=== PATIENT | female | born 1990 ===

== ENCOUNTER 2020-12-11 16:41 | Emergency (ER) | payer OTHER ==
--- NOTE | 2020-12-11 16:52 | EDM.PDOC ---
ED HPI GENERAL MEDICAL PROBLEM - General Chief Complaint: Neuro Symptoms/Deficits Stated Complaint: HEADACHE,syncope Time Seen by Provider: 12/11/20 16:48 Source of Information: Reports: Patient History Limitations: Reports: No Limitations - History of Present Illness INITIAL COMMENTS - FREE TEXT/NARRATIVE: Patient works at [employer]. Severe frontal headache developed just prior to arrival. Patient sat down. Passed out. EMS called. Patient woke up and was being seen by EMS. Passed out again. Emesis x1 while en route to hospital. Patient had second Covid vaccination yesterday. Denies fevers/chills. No URI complaints. No loose stools. No other reported acute changes/focal weakness. Unable to sit up at all due to increased dizziness. - Related Data Allergies Allergy/AdvReac Type Severity Reaction Status Date / Time No Known Allergies Allergy Verified 12/11/20 16:46 Home Meds: Home Meds . [No Known Home Meds] 12/11/20 [History] Past Medical History - Past Health History Medical/Surgical History: Denies Medical/Surgical History ED ROS GENERAL - Review of Systems Review Of Systems: See Below Constitutional: Reports: Fatigue. Denies: Fever, Chills, Night Sweats, Diaphoresis HEENT: Reports: No Symptoms. Denies: Vision Change Respiratory: Reports: No Symptoms Cardiovascular: Reports: No Symptoms GI/Abdominal: Reports: Nausea, Vomiting. Denies: Abdominal Pain, Constipation, Diarrhea : Reports: No Symptoms Musculoskeletal: Reports: No Symptoms Skin: Reports: No Symptoms Neurological: Reports: Dizziness, Headache, Syncope, Difficulty Walking. Denies: Numbness, Paresthesia, Seizure, Tingling, Trouble Speaking, Change in Speech Psychiatric: Reports: No Symptoms Hematologic/Lymphatic: Reports: No Symptoms Immunologic: Reports: No Symptoms ED EXAM, GENERAL - Physical Exam Exam: See Below Exam Limited By: No Limitations General Appearance: Alert, Moderate Distress Eye Exam: Bilateral Eye: EOMI, PERRL, Other (no nystagmus noted) Ears: Normal External Exam, Normal Canal, Hearing Grossly Normal, Normal TMs Nose: Normal Inspection Throat/Mouth: Normal Inspection, Normal Lips, Normal Voice, No Airway Compromise Head: Atraumatic, Normocephalic Neck: Normal Inspection, Supple, Non-Tender, Full Range of Motion Respiratory/Chest: No Respiratory Distress, Lungs Clear, Normal Breath Sounds, No Accessory Muscle Use Cardiovascular: Regular Rate, Rhythm, No Edema, No Murmur GI/Abdominal: Normal Bowel Sounds, Soft, Non-Tender (Female) Exam: Deferred Rectal (Female) Exam: Deferred Back Exam: Normal Inspection Extremities: Normal Inspection, Normal Capillary Refill Neurological: Alert, Oriented, CN II-XII Intact, Normal Cognition, Normal Reflexes, No Motor/Sensory Deficits Psychiatric: Anxious Skin Exam: Warm, Dry, Intact #1 Interpretation EKG Date: 12/11/20 Time: 17:02 Rhythm: NSR Rate (Beats/Min): 63 [place]: Normal P-Wave: Present QRS: Normal ST-T: Normal QT: Normal Course - Orders/Labs/Meds Orders: Active Orders 24 hr Category Date Time Status EKG Documentation Completion [RC] ASDIRECTED Care 12/11/20 16:49 Active Head wo Cont [CT] Stat Exams 12/11/20 16:49 Taken DRUG SCREEN, URINE [URCHEM] Stat Lab 12/11/20 17:35 Received HCG QUALITATIVE,URINE [URCHEM] Stat Lab 12/11/20 17:35 Received UA W/MICROSCOPIC [URIN] Stat Lab 12/11/20 17:35 Received Ketorolac [Toradol] Med 12/11/20 17:44 Ordered 15 mg IVPUSH Q6H PRN Ondansetron [Zofran] Med 12/11/20 17:45 Ordered 4 mg IVPUSH Q6H PRN Sodium Chloride 0.9% [Normal Saline] 1,000 ml Med 12/11/20 17:33 Active IV .BOLUS Sodium Chloride 0.9% [Saline Flush] Med 12/11/20 16:48 Active 10 ml FLUSH ASDIRECTED PRN Saline Lock Insert [OM.PC] Stat Oth 12/11/20 16:48 Ordered Medication Orders Sodium Chloride (Normal Saline) 1,000 mls @ 999 mls/hr IV .BOLUS ONE Stop: 12/11/20 18:33 Last Admin: 12/11/20 17:38 Dose: 999 mls/hr Documented by: ROCK Ketorolac Tromethamine (Ketorolac 15 Mg/Ml Sdv) 15 mg IVPUSH Q6H PRN PRN Reason: Pain Stop: 12/16/20 17:45 Ondansetron HCl (Ondansetron 4 Mg/2 Ml Sdv) 4 mg IVPUSH Q6H PRN PRN Reason: Nausea/Vomiting Sodium Chloride (Sodium Chloride 0.9% 10 Ml Syringe) 10 ml FLUSH ASDIRECTED PRN PRN Reason: Keep Vein Open Last Admin: 12/11/20 16:57 Dose: 10 ml Documented by: ROCK Labs: Laboratory Tests 12/11/20 12/11/20 12/11/20 Range/Units 04:58 04:58 04:58 WBC 4.6 (4.0-10.2) K/uL RBC 4.02 (3.77-5.09) M/uL Hgb 11.6 L (11.7-15.5) g/dL Hct 35.2 (34.0-46.0) % MCV 87.6 (84.0-98.0) fL MCH 28.9 (28.2-33.3) pg MCHC 33.0 (31.7-36.0) g/dL RDW 12.1 (11.2-14.1) % Plt Count 320 (150-350) K/uL Neut % (Auto) 58.8 (45.0-80.0) % Lymph % (Auto) 25.2 (10.0-50.0) % Saunders % (Auto) 14.7 H (2.0-14.0) % Eos % (Auto) 1.1 (0.0-5.0) % Baso % (Auto) 0.2 (0.0-2.0) % Neut # (Auto) 2.68 (1.40-7.00) K/uL Lymph # (Auto) 1.15 (0.50-3.50) K/uL Saunders # (Auto) 0.67 (0.00-1.00) K/uL Eos # (Auto) 0.05 (0.00-0.50) K/uL Baso # (Auto) 0.01 (0.00-0.20) K/uL PT (9.5-12.0) SEC INR Sodium 140 (136-145) mmol/L Potassium 3.8 (3.5-5.1) mmol/L Chloride 108 H (98-107) mmol/L Carbon Dioxide 26.3 (21.0-32.0) mmol/L Anion Gap 9.5 (7-15) meq/L BUN 12 (7-18) mg/dL Creatinine 0.70 (0.51-1.17) mg/dL Est Cr Clr Drug Dosing TNP Estimated GFR (MDRD) > 60 mL/min Glucose 66 L (70-99) mg/dL Lactic Acid 2.1 H (0.4-2.0) mmol/L Calcium 8.5 (8.5-10.1) mg/dL Magnesium 2.0 (1.8-2.4) mg/dL Total Bilirubin 0.7 (0.2-1.0) mg/dL AST 14 L (15-37) U/L ALT 27 (12-78) U/L Alkaline Phosphatase 93 (46-116) IU/L Troponin I High Sens < 4 (<=51) ng/L Total Protein 7.2 (6.4-8.2) g/dL Albumin 3.5 (3.4-5.0) g/dL 12/11/20 Range/Units 04:58 WBC (4.0-10.2) K/uL RBC (3.77-5.09) M/uL Hgb (11.7-15.5) g/dL Hct (34.0-46.0) % MCV (84.0-98.0) fL MCH (28.2-33.3) pg MCHC (31.7-36.0) g/dL RDW (11.2-14.1) % Plt Count (150-350) K/uL Neut % (Auto) (45.0-80.0) % Lymph % (Auto) (10.0-50.0) % Saunders % (Auto) (2.0-14.0) % Eos % (Auto) (0.0-5.0) % Baso % (Auto) (0.0-2.0) % Neut # (Auto) (1.40-7.00) K/uL Lymph # (Auto) (0.50-3.50) K/uL Saunders # (Auto) (0.00-1.00) K/uL Eos # (Auto) (0.00-0.50) K/uL Baso # (Auto) (0.00-0.20) K/uL PT 9.8 (9.5-12.0) SEC INR 1.0 Sodium (136-145) mmol/L Potassium (3.5-5.1) mmol/L Chloride (98-107) mmol/L Carbon Dioxide (21.0-32.0) mmol/L Anion Gap (7-15) meq/L BUN (7-18) mg/dL Creatinine (0.51-1.17) mg/dL Est Cr Clr Drug Dosing Estimated GFR (MDRD) mL/min Glucose (70-99) mg/dL Lactic Acid (0.4-2.0) mmol/L Calcium (8.5-10.1) mg/dL Magnesium (1.8-2.4) mg/dL Total Bilirubin (0.2-1.0) mg/dL AST (15-37) U/L ALT (12-78) U/L Alkaline Phosphatase (46-116) IU/L Troponin I High Sens (<=51) ng/L Total Protein (6.4-8.2) g/dL Albumin (3.4-5.0) g/dL Meds: Medications Generic Name Dose Route Start Last Admin Trade Name Freq PRN Reason Stop Dose Admin Sodium Chloride 1,000 mls @ 999 mls/hr 12/11/20 17:33 12/11/20 17:38 Normal Saline IV 12/11/20 18:33 999 mls/hr .BOLUS ONE Administration Ketorolac Tromethamine 15 mg 12/11/20 17:44 Ketorolac 15 Mg/Ml Sdv IVPUSH 12/16/20 17:45 Q6H PRN Pain Ondansetron HCl 4 mg 12/11/20 17:45 Ondansetron 4 Mg/2 Ml Sdv IVPUSH Q6H PRN Nausea/Vomiting Sodium Chloride 10 ml 12/11/20 16:48 12/11/20 16:57 Sodium Chloride 0.9% 10 Ml Syringe FLUSH 10 ml ASDIRECTED PRN Administration Keep Vein Open Discontinued Medications Generic Name Dose Route Start Last Admin Trade Name Freq PRN Reason Stop Dose Admin Meclizine HCl 25 mg 12/11/20 17:19 12/11/20 17:37 Meclizine 25 Mg Tab PO 12/11/20 17:20 25 mg ONETIME ONE Administration Morphine Sulfate 2 mg 12/11/20 17:45 Morphine 2 Mg/Ml Syringe IVPUSH 12/11/20 17:46 ONETIME ONE Ondansetron HCl 4 mg 12/11/20 16:50 12/11/20 16:57 Ondansetron 4 Mg/2 Ml Sdv IVPUSH 12/11/20 16:51 4 mg ONETIME ONE Administration - Re-Assessments/Exams Free Text/Narrative Re-Assessment/Exam: 12/11/20 17:55 Stroke Code called initially. Discontinued after 17:[address] cleared by Radiology and no focal neuro findings noted on exam. Labs ordered. Initial accucheck 119. However specimen sent to lab 66. Lactic minimally elevated at 2.2. CBC/Chem/Mg/Trop/pt/INR unremarkable. Toradol/MS then ordered for pain. Patient also received Meclizine/Zofran. Suspect complaints may be due to yesterday's second Covid vaccination as all of her symptoms are listed as potential side effects from Covid vaccination. Patient unable to sit up comfortably. Will admit observation for IV fluids and continued treatment of presenting complaints. Observe for changes. Departure - Departure Time of Disposition: 17:46 Disposition: Refer to Observation Condition: Good Clinical Impression: Syncopal vertigo Headache Qualifiers: Headache type: unspecified Headache chronicity pattern: acute headache Intractability: not intractable Qualified Code(s): R51.9 - Headache, unspecified - Discharge Information *PRESCRIPTION DRUG MONITORING PROGRAM REVIEWED*: Not Applicable *COPY OF PRESCRIPTION DRUG MONITORING REPORT IN PATIENT RIDDHI: Not Applicable Forms: ED Department Discharge - Problem List & Annotations (1) Headache SNOMED Code(s): 95880581 Code(s): R51.9 - HEADACHE, UNSPECIFIED Status: Acute Priority: High Onset Date: 12/11/20 Annotation/Comment:: Acute frontal headache that started this afternoon. Suspect related to patient's second covid vaccination yesterday. Negative head CT. No focal neuro changes on exam. No history of previous similar headaches. Qualifiers: Headache type: unspecified Headache chronicity pattern: acute headache Intractability: not intractable Qualified Code(s): R51.9 - Headache, unspecified (2) Syncopal vertigo SNOMED Code(s): 448405275 Code(s): R55 - SYNCOPE AND COLLAPSE; R42 - DIZZINESS AND GIDDINESS Status: Acute Priority: High Onset Date: 12/11/20 Annotation/Comment:: Suspect may have been triggered by yesterday's second Covid vaccination. Unremarkable labs/CT. Given Meclizine in ER. - Problem List Review Problem List Initiated/Reviewed/Updated: Yes - My Orders Last 24 Hours: My Active Orders 12/11/20 16:48 Sodium Chloride 0.9% [Saline Flush] 10 ml FLUSH ASDIRECTED PRN Saline Lock Insert [OM.PC] Stat 12/11/20 16:49 EKG Documentation Completion [RC] ASDIRECTED Head wo Cont [CT] Stat 12/11/20 17:33 Sodium Chloride 0.9% [Normal Saline] 1,000 ml IV .BOLUS 12/11/20 17:35 DRUG SCREEN, URINE [URCHEM] Stat HCG QUALITATIVE,URINE [URCHEM] Stat UA W/MICROSCOPIC [URIN] Stat 12/11/20 17:44 Ketorolac [Toradol] 15 mg IVPUSH Q6H PRN 12/11/20 17:45 Ondansetron [Zofran] 4 mg IVPUSH Q6H PRN - Assessment/Plan Admission H&P: Please use this note as an admission H&P Last 24 Hours: My Active Orders 12/11/20 16:48 Sodium Chloride 0.9% [Saline Flush] 10 ml FLUSH ASDIRECTED PRN Saline Lock Insert [OM.PC] Stat 12/11/20 16:49 EKG Documentation Completion [RC] ASDIRECTED Head wo Cont [CT] Stat 12/11/20 17:33 Sodium Chloride 0.9% [Normal Saline] 1,000 ml IV .BOLUS 12/11/20 17:35 DRUG SCREEN, URINE [URCHEM] Stat HCG QUALITATIVE,URINE [URCHEM] Stat UA W/MICROSCOPIC [URIN] Stat 12/11/20 17:44 Ketorolac [Toradol] 15 mg IVPUSH Q6H PRN 12/11/20 17:45 Ondansetron [Zofran] 4 mg IVPUSH Q6H PRN Assessment:: as above. Stable and suitable for general supervision Plan: Admit observation for assistance with ADLs, IV fluids, and management of headache/vertigo.
[2020-12-11] MEDS: Sodium Chloride 0.9% 10 ML Syringe FLUSH PRN (16:57)
[2020-12-11] MEDS: Ondansetron 4 MG/2 ML SDV IVPUSH ONE (16:57)
[2020-12-11 17:32] LABS: CHLORIDE,CL 108 mmol/L (98-107); SODIUM,NA 140 mmol/L (136-145)
[2020-12-11 17:33] LABS: ANION GAP 9.5 meq/L (7-15)
[2020-12-11] MEDS: Meclizine 25 MG Tab PO ONE (17:37)
[2020-12-11] MEDS: Sodium Chloride 0.9% 1,000 ML IV ONE ×2 (17:38→18:54)
[2020-12-11] MEDS ORDERED: Ketorolac 15 MG/ML SDV IVPUSH PRN (17:44)
[2020-12-11] MEDS ORDERED: Ondansetron 4 MG/2 ML SDV IVPUSH PRN (17:45)
[2020-12-11 17:49] LABS: BARBITURATE SCREEN,URINE NEGATIVE (NEGATIVE); BENZODIAZEPINES SCREEN,URINE NEGATIVE (NEGATIVE); EDDP,URINE SCREEN NEGATIVE (NEGATIVE); TCA SCREEN,URINE NEGATIVE (NEGATIVE); THC SCREEN,URINE 50 NG/ML NEGATIVE (NEGATIVE)
[2020-12-11 17:50] LABS: BUPRENORPHINE SCREEN,URINE NEGATIVE (NEGATIVE)
[2020-12-11] MEDS: Morphine 2 MG/ML SYRINGE IVPUSH ONE (18:45)
[2020-12-11] MEDS: Diazepam 5 MG Tab PO ONE (18:45)
== END 2020-12-11 20:45 | disposition home or self-care (01) ==
LOC: LL.ED 16:41 → UNDOADMOB 18:29 → LL.MS 18:29
DX: R55 Syncope and collapse (principal); R42 Dizziness and giddiness; R51.9 Headache, unspecified
CPT/HCPCS: 36415; 70450; 80053; 80305-QW; 81001; 81025; 83605; 83735; 84484; 85025; 85610; 93005; 96374; 96375; 99284-25; A9270-GY; J2270; J2405; J7030